=== PATIENT | male | born 1945 | race Caucasian/White ===

== ENCOUNTER 2022-12-11 23:27 | Emergency (ER) | payer MEDICARE ==
[~2022-12-11 23:27] MED LIST: Iopamidol 370 76% 200 ML VIAL ONE; Norepinephrine 4 MG/4 ML VIAL ONE; Sodium Chloride 0.9% 100 ML BAG ONE
[2022-12-11] MEDS ORDERED: Sodium Chloride 0.9% 1,000 ML ONE (23:47)
[2022-12-12] MEDS ORDERED: Morphine 2 MG/ML VIAL ONE (00:20)
[2022-12-12] MEDS ORDERED: Sodium Chloride 0.9% 1,000 ML ONE (00:20)
[2022-12-12 00:36] LABS: Base Excess-Venous -8.9 mmol/L (-2.0 to 3.0); Bicarbonate (HCO3v) 18.4 mmol/L (22.0-28.0); CO2 Tension (PvCO2) 43.4 mmHg (42.0-51.0); Chloride 101 mmol/L (98-107); Hemoglobin - Calc 16.8 g/dL (14.0-18.0); Potassium 4.1 mmol/L (3.5-5.1); Sodium 134 mmol/L (138-145); T. Carbon Dioxide 19.7 mmol/L (22.0-28.0); vO2 Saturation-calc 52.2 % (60.0-85.0)
[2022-12-12 00:36] LABS: ALT (SGPT) 97 U/L (8-55); AST (SGOT) 97 U/L (5-34); Albumin 3.4 g/dL (3.4-4.8); Alkaline Phosphatase 110 U/L (40-110); Anion Gap 19 mmol/L (10-20); BUN (Urea Nitrogen) 24 mg/dL (8.4-25.7); Bilirubin, Total 0.9 mg/dL (0.2-1.2); Calc. Creatinine Clearance 0 mL/min (70-130); Calcium 9.3 mg/dL (7.8-10.44); Carbon Dioxide 19 mmol/L (23-31); Chloride 101 mmol/L (98-107); Estimated GFR 90; Globulin 3.1 g/dL (2.4-3.5); Glucose 189 mg/dL (83-110); Lipase 16 U/L (8-78); Magnesium 2.1 mg/dL (1.6-2.6); Potassium 4.3 mmol/L (3.5-5.1); Protein, Total 6.5 g/dL (5.8-8.1); Sodium 135 mmol/L (136-145)
[2022-12-12 00:40] LABS: #Basophils 0.1 thou/uL (0.0-0.2); #Lymphocytes 1.1 thou/uL (1.20-3.40); #Monocytes 0.1 thou/uL (0.11-0.59); #Neutrophils 2.9 thou/uL (1.40-6.50); %Basophils 1.6 % (0.0-1.0); %Eosinophils 0.8 % (0.0-10.0); %Lymphocytes 26.8 % (21.0-51.0); %Monocytes 1.5 % (0.0-10.0); %Neutrophils 69.3 % (42.0-75.0); Hemoglobin 15.9 g/dL (14.0-18.0); Mean Corpuscular Hemoglobin 31.6 pg (27.0-31.0); Mean Corpuscular Volume 95.7 fl (78.0-98.0); Mean Platelet Volume 7.2 fL (7.4-10.4); Platelet Count 306 10x3/uL (130-400); RBC Distribution Width 12.2 % (11.5-14.5); Red Blood Cell (RBC) Count 5.03 mill/uL (4.70-6.10); White Blood Cell (WBC) Count 4.2 10x3/uL (4.8-10.8)
[2022-12-12 00:41] LABS: Platelet Morphology Comment Appears Adequate; RBC Morphology Normal
[2022-12-12] MEDS ORDERED: Norepinephrine 4 MG/4 ML VIAL ONE (01:03)
[2022-12-12 01:23] LABS: Hemoglobin 12.1 g/dL (14.0-18.0)
[2022-12-12] MEDS ORDERED: DOPamine 400 MG/D5W 250 ML 250 ML ONE (01:35)
[2022-12-12] MEDS ORDERED: Sodium Chloride 0.9% 2,000 ML ONE (01:35)
[2022-12-12 01:50] LABS: Bilirubin Negative (Negative); Blood, Urine Negative (Negative); Clarity Clear (Clear); Glucose, Urine (Dipstick) Negative (Negative); Ketone, Urine Negative (Negative); Leukocyte Negative (Negative); Nitrite Negative (Negative); Protein, Urine (Dipstick) Negative (Neg-Trace); Specific Gravity, Urine 1.025 (1.005-1.030); pH, Urine 6.5 (5.0-9.0)
[2022-12-12] MEDS ORDERED: Piperacillin/Tazobactam 4.5 GM VIAL ONE (01:50)
[2022-12-12] MEDS ORDERED: Sodium Chloride 0.9% 100 ML ONE (01:51)
[2022-12-12 02:24] LABS: SARS-CoV-2 NAA Rapid Test Not Detected (NotDetected)
[2022-12-18 13:32] LABS: Reference Lab Name LABCORP
[2022-12-18 13:33] LABS: Ref Lab Test Ordered ID AND SUSCEPT
== END 2022-12-12 02:50 | disposition short-term general hospital (02) ==
LOC: MADERS 23:27
DX: K63.1 Perforation of intestine (nontraumatic) (principal); S22.070A Wedge compression fracture of T9-T10 vertebra, initial encounter for closed fracture; S22.080A Wedge compression fracture of T11-T12 vertebra, initial encounter for closed fracture; S32.010A Wedge compression fracture of first lumbar vertebra, initial encounter for closed fracture; S32.020A Wedge compression fracture of second lumbar vertebra, initial encounter for closed fracture; S32.030A Wedge compression fracture of third lumbar vertebra, initial encounter for closed fracture; S32.040A Wedge compression fracture of fourth lumbar vertebra, initial encounter for closed fracture; S32.050A Wedge compression fracture of fifth lumbar vertebra, initial encounter for closed fracture; C18.9 Malignant neoplasm of colon, unspecified; R74.02 Elevation of levels of lactic acid dehydrogenase [LDH]; X58.XXXA Exposure to other specified factors, initial encounter; Z79.899 Other long term (current) drug therapy; Z20.822 Contact with and (suspected) exposure to COVID-19
CPT/HCPCS: 51701; 71275; 74174; 80053; 81003; 82330; 82435; 82803; 83605; 83690; 83735; 84132; 84295; 84484; 85014; 85018; 85025; 87040; 87086; 93005; 96365; 96366; 96368; J1265; J2272; J2543; J3490; J7050; J7070